=== PATIENT | male | born 1985 | race Caucasian/White ===

== ENCOUNTER 2019-11-09 01:31 | Emergency (ER) | payer MEDICAID, OTHER ==
[~2019-11-09] VITALS: Ht 185.4 cm; Wt 84.5 kg
--- NOTE | 2019-11-09 01:46 | NUR ---
SUHAIL MONTES. REPORT ALREADY FILED STRE[facility] [employer]MENT O[employer] BY [employer].
[2019-11-09] MEDS ORDERED: TETanus/Pertussis (Acell)/Diphther VAC/PF (Tdap-Adult) 0.5ml syringe IMVAC ONE (02:15)
[2019-11-09 02:35] VITALS: BP 131/66
== END 2019-11-09 02:39 | disposition home or self-care (01) ==
LOC: ER 01:31
DX: S01.01XA Laceration without foreign body of scalp, initial encounter (principal); Y04.8XXA Assault by other bodily force, initial encounter; Y93.89 Activity, other specified; Y92.89 Other specified places as the place of occurrence of the external cause; Y99.8 Other external cause status
CPT/HCPCS: 12001; 90471; 90715; 99284

== ENCOUNTER 2019-11-14 16:31 | Emergency (ER) | payer SELFPAY ==
[~2019-11-14] VITALS: Ht 185.4 cm; Wt 84.5 kg
[2019-11-14] MEDS ORDERED: cephalexin 500mg capsule PO ONE (17:50)
[2019-11-14] MEDS ORDERED: CefTRIAXone/D5W-Rocephin 1gm 50 ML IV ONE (18:35)
[2019-11-14] MEDS ORDERED: vancomycin/NS 1 GM ADD-VANTAGE 250 ML X 1 DOSE IV ONE (18:40)
[2019-11-14] MEDS ORDERED: DOXY100C76 PO (18:56)
[2019-11-14] MEDS ORDERED: LIDOcaine 1% W/epiNEPHrine 1:200,000 10ml vial IJ ONE (19:35)
[2019-11-14 20:58] VITALS: BP 126/70
--- NOTE | 2019-11-18 09:28 | NUR ---
PT CALLED REGARDING VISIT ON 11/13. 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
== END 2019-11-14 21:00 | disposition home or self-care (01) ==
LOC: ER 16:32
DX: S01.00XA Unspecified open wound of scalp, initial encounter (principal); Z79.899 Other long term (current) drug therapy
CPT/HCPCS: 87070; 87077; 87186; 96365; 96366; 96368; 99284; J0696; J3370